=== PATIENT | female | born 1980 | race Caucasian/White ===

== ENCOUNTER 2021-12-12 16:44 | Emergency (ER) | payer OTHER ==
[~2021-12-12] VITALS: Ht 165.1 cm; Wt 95.3 kg
[2021-12-12] MEDS ORDERED: IV NORMAL SALINE 1000 ML BAG IV ONE (17:00)
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
[2021-12-12 17:11] LABS: HEMATOCRIT 41.5 % (31.2-41.9); MEAN CORPUSCULAR HEMOGLOBIN 33.7 uug (24.7-32.8); MEAN CORPUSCULAR VOLUME 97.5 fL (75.5-95.3); PLATELET COUNT (AUTO) 272 K/uL (179-408)
[2021-12-12 17:16] LABS: CARBON DIOXIDE 31 mmol/L (21-32); CHLORIDE 104 mmol/L (98-107); CREATININE 0.9 mg/dL (0.6-1.3); GLUCOSE 105 mg/dL (74-106); POTASSIUM 3.3 mmol/L (3.5-5.1); UREA NITROGEN, BLOOD 14 mg/dL (7-18)
[2021-12-12] MEDS ORDERED: MAGNESIUM SULFATE/D5W 100 ML IV SCH (18:00)
[2021-12-12] MEDS ORDERED: LORAZEPAM 0.5 MG TABLET PO ONE ×2 (18:15→18:45)
--- NOTE | 2021-12-12 18:35 | NUR ---
Pt disappeared from her room. Security found pt walking by garage. [employer] officer was walking back in and caught up w/pt who stated she was just looking for a light for her cigarette. Pt was escorted back to her bed and hooked back to monitor, etc.
[2021-12-12] MEDS ORDERED: MAGNESIUM SULFATE/D5W 100 ML ONE (18:52)
[2021-12-12] MEDS ORDERED: LORAZEPAM 1 MG TABLET ONE (18:52)
[2021-12-12 18:57] LABS: *URINE HCG, QUAL NEG (NEGATIVE)
[2021-12-12 19:15] LABS: *AMPHETAMINE, URINE NEGATIVE (NEGATIVE); *CANNABINOID, URINE POSITIVE (NEGATIVE); *COCCAINE, URINE NEGATIVE (NEGATIVE); *OPIATE, URINE NEGATIVE (NEGATIVE); *PHENCYCLIDINE SCREEN,URINE NEGATIVE (NEGATIVE)
[2021-12-12] MEDS ORDERED: LORAZEPAM 0.5 MG TABLET ONE (19:26)
--- NOTE | 2021-12-12 20:44 | NUR ---
Called taxi ETA 15-20mins
--- NOTE | 2021-12-12 21:02 | NUR ---
Patient discharged to home in stable condition. Written and verbal after care instructions given. Patient verbalizes understanding of instructions. Stressed follow up or return to ER for worsening s/s. pt discharged via taxi. denies pain. AOx4
[2021-12-12 21:06] VITALS: BP 130/91
== END 2021-12-12 21:07 | disposition left against medical advice (07) ==
LOC: ER 16:49
DX: R00.0 Tachycardia, unspecified (principal); F10.129 Alcohol abuse with intoxication, unspecified; Y90.8 Blood alcohol level of 240 mg/100 ml or more; E83.42 Hypomagnesemia; Z88.6 Allergy status to analgesic agent; Z88.3 Allergy status to other anti-infective agents; Z53.29 Procedure and treatment not carried out because of patient's decision for other reasons
CPT/HCPCS: 80048; 84703; 83735; 85025; 84484 ×2; 36415; 93005; 71045; 70450; 72125; 99291; 96361; 96365; 96366; 80320; 80307; J3475; J7040; A4663; G0480

== ENCOUNTER 2022-04-18 20:52 | Inpatient (IN) | payer OTHER ==
[~2022-04-18] VITALS: Ht 162.6 cm; Wt 117.9 kg
[2022-04-18] MEDS ORDERED: LORAZEPAM 2 MG/1 ML VIAL IV ONE ×2 (21:00→22:30)
[2022-04-18] MEDS ORDERED: IV D5/ 0.9% NACL 1,000 ML IV ONE (21:00)
[2022-04-18] MEDS ORDERED: ONDANSETRON 4 MG/2 ML VIAL IV ONE (21:00)
[2022-04-18] MEDS ORDERED: LORAZEPAM 2 MG/1 ML VIAL ONE ×2 (21:19→22:37)
[2022-04-18] MEDS ORDERED: ONDANSETRON 4 MG/2 ML VIAL ONE (21:19)
[2022-04-18 21:20] LABS: HEMATOCRIT 41.4 % (31.2-41.9); MEAN CORPUSCULAR HEMOGLOBIN 37.7 uug (24.7-32.8); PLATELET COUNT (AUTO) 108 K/uL (179-408)
[2022-04-18 21:32] LABS: ALANINE AMINOTRANSFERASE 165 U/L (14-59); ALKALINE PHOSPHATASE 149 U/L (50-136); ASPARTATE AMINOTRANSFERASE 424 U/L (15-37); BILIRUBIN,DIRECT 1.4 mg/dL (0.0-0.2); BILIRUBIN,TOTAL 2.3 mg/dL (0.2-1.0); CARBON DIOXIDE 29 mmol/L (21-32); CHLORIDE 100 mmol/L (98-107); GLUCOSE 118 mg/dL (74-106); POTASSIUM 3.5 mmol/L (3.5-5.1); TOTAL PROTEIN, SERUM 7.3 g/dL (6.4-8.2); UREA NITROGEN, BLOOD 11 mg/dL (7-18)
[2022-04-18 21:37] LABS: ACETAMINOPHEN < 10.0 ug/mL (10-30)
[2022-04-18 21:50] LABS: ETHANOL < 3 MG/DL (0-0)
[2022-04-18] MEDS ORDERED: MAGNESIUM SULFATE/D5W 400 ML ONE (22:01)
[2022-04-18] MEDS: MAGNESIUM SULFATE/D5W 100 ML IV SCH ×2 (22:03→22:34)
[2022-04-18] MEDS ORDERED: LIDOCAINE VISCUS 2% 15 ML UDC MM ONE (23:30)
[2022-04-18] MEDS ORDERED: MAG HYDROX/AL HYDROX/SIMETH 30 ML LIQUID UDC PO ONE (23:30)
[2022-04-18] MEDS ORDERED: DICYCLOMINE HCL LIQ 10 MG/5 ML UDC PO ONE (23:30)
[2022-04-18 23:48] LABS: *URINE HCG, QUAL NEGATIVE (NEGATIVE)
[2022-04-18 23:49] LABS: *BILIRUBIN,URIN 1+ (NEGATIVE); *BLOOD, URINE 1+ (NEGATIVE); *KETONES,URINE NEGATIVE (NEGATIVE); LEUKOCYTE ESTERASE ,URINE NEGATIVE (NEGATIVE); NITRITE, URINE POSITIVE (NEGATIVE); UGLUCOSE NEGATIVE (NEGATIVE)
[2022-04-19 00:03] LABS: *AMPHETAMINE, URINE NEGATIVE (NEGATIVE); *CANNABINOID, URINE NEGATIVE (NEGATIVE); *COCCAINE, URINE NEGATIVE (NEGATIVE); *OPIATE, URINE NEGATIVE (NEGATIVE); *PHENCYCLIDINE SCREEN,URINE NEGATIVE (NEGATIVE)
[2022-04-19 00:09] LABS: *CLARITY,URINE SLIGHTLY CLOUDY (CLEAR); *COLOR,URINE DARK YELLOW (YELLOW)
[2022-04-19 00:23] LABS: BACTERIA,URINE MODERATE /HPF (NONE SEEN); SQUAMOUS EPITHELIAL CELL,UR FEW /HPF (NONE SEEN)
[2022-04-19] MEDS: MAGNESIUM SULFATE/D5W 100 ML IV SCH ×2 (00:30→01:15)
[2022-04-19] MEDS ORDERED: DICYCLOMINE HCL LIQ 10 MG/5 ML UDC ONE (00:38)
[2022-04-19] MEDS ORDERED: LIDOCAINE VISCUS 2% 15 ML UDC ONE (00:38)
[2022-04-19] MEDS ORDERED: MAG HYDROX/AL HYDROX/SIMETH 30 ML LIQUID UDC ONE ×2 (00:38→01:15)
[2022-04-19] MEDS ORDERED: NITROFURANTOIN/NITROFURAN MAC 100 MG CAPSULE PO ONE ×2 (00:45→01:15)
[2022-04-19] MEDS ORDERED: IV NORMAL SALINE 1000 ML BAG IV ONE (00:45)
[2022-04-19 01:12] LABS: MAGNESIUM 2.1 mg/dL (1.8-2.4); POTASSIUM 3.1 mmol/L (3.5-5.1)
[2022-04-19] MEDS ORDERED: MAG HYDROX/AL HYDROX/SIMETH 30 ML LIQUID UDC PO ONE (01:15)
[2022-04-19] MEDS ORDERED: PANTOPRAZOLE SODIUM 40 MG VIAL ONE (01:15)
[2022-04-19] MEDS ORDERED: LORAZEPAM 2 MG/1 ML VIAL IV ONE (01:15)
[2022-04-19] MEDS ORDERED: PANTOPRAZOLE SODIUM IV 40 MG in IV DEXTROSE 5% 100 ML IV ONE (01:15)
[2022-04-19] MEDS ORDERED: LORAZEPAM 2 MG/1 ML VIAL ONE (01:30)
[2022-04-19] MEDS ORDERED: POTASSIUM CHLORIDE 20 MEQ TAB.PRT.SR PO ONE (02:00)
[2022-04-19] MEDS ORDERED: POTASSIUM CHLORIDE 20 MEQ TAB.PRT.SR ONE (02:04)
[2022-04-19] MEDS ORDERED: MAGNESIUM HYDROXIDE 30 ML LIQUID UDC PO PRN (03:15)
[2022-04-19] MEDS ORDERED: ONDANSETRON 4 MG/2 ML VIAL IV PRN (03:15)
[2022-04-19] MEDS ORDERED: LORAZEPAM 2 MG/1 ML VIAL IV PRN (03:15)
[2022-04-19] MEDS ORDERED: ACETAMINOPHEN 325 MG TABLET PO PRN (03:15)
[2022-04-19] MEDS ORDERED: IV NS 1000 ML 1,000 ML IV PRN (03:15)
[2022-04-19] MEDS ORDERED: REMEDY ESSENTIAL ZINC PASTE 113 GM TP PRN (03:15)
--- NOTE | 2022-04-19 03:19 | NUR ---
Report received from Sophia
--- NOTE | 2022-04-19 03:25 | NUR ---
Patient was initially tremulous and unable to ambulate. After Ativan IV, multiple doses of magnesium and 2000cc IV fluid patient is much improved--able to walk with minimal assistance to BR to void. Report called to ROBY Rich. Will transporet to third floor via wheelchair when paperwork available
[2022-04-19] MEDS ORDERED: CEFTRIAXONE 1 G in IV DEXTROSE 5% 50 ML IV SCH (04:00)
[2022-04-19] MEDS ORDERED: CEFTRIAXONE /D5W 50ML IVPB **ER PYXIS IV ONE (05:51)
[2022-04-19 05:53] VITALS: BP 155/94
--- NOTE | 2022-04-19 07:00 | NUR ---
Patient received from ER by wheelchair at 0529. Complained of having tremors when in the ER. Is now stating "I feel a lot more stable now." AAOx4. No distress noted at this time. Left AC IV is intact and patent. NS runs at 120cc/hr. Rocephin was administered. Ambulatory, standby assistance is needed. Endorsed safety and comfort measures. Plan of care to be continued for new admission.
--- NOTE | 2022-04-19 07:00 | NUR ---
Patient on tele monitor. Transitions from SR in high 90s [address] in 104s.
[2022-04-19] MEDS: CHLORDIAZEPOXIDE HCL 25 MG CAPSULE PO SCH ×2 (08:49→12:39)
[2022-04-19] MEDS ORDERED: PANTOPRAZOLE SODIUM 40 MG VIAL IV SCH (09:00)
[2022-04-19 11:33] VITALS: BP 160/91
[2022-04-19] MEDS ORDERED: METH-817 PO (12:10)
[2022-04-19] MEDS ORDERED: PANT40TA2 PO (12:10)
[2022-04-19] MEDS ORDERED: THIAMINE HCL INJ 100 MG in IV DEXTROSE 5% 50 ML IV SCH (13:00)
--- NOTE | 2022-04-19 14:06 | NUR ---
Social work consult was requested for a patient on [facility] for substance abuse resources. Patient is 41-year-old female. Patient is alert and oriented X4. Patient presents with anxious mood and congruent affect. Patient states her primary ground crew lines person is her boyfriend, Chas Ferrara ([phone]) and he lives in [place]. Patients boyfriend Chas Ferrara ([phone]) was at the patients bedside. Patient states she currently lives with her Grandma at [address] [place] [address]. Patient states she does not have any medical equipment at home, is not driving, and is receiving disability social security. Patient states she has a history of alcohol abuse and the last time she drank was 3 days ago. The toxicology report is negative. MALGORZATA provided the patient with substance abuse resources for resources to [address] [address] ([phone]), [facility] [address] [facility] [address] ([phone]), and [place] [address] ([phone]). MALGORZATA also provided the number for [facility] ([phone]). Patient appeared ambivalent about treatment. Patient states she has a history of anxiety and has a therapist through the department of mental health that she sees every two weeks. Patient states she does not have a psychiatrist or take medication. MALGORZATA provided the patient with the mental health resource [facility] [address] [facility] [address] ([phone]). Patient denies suicidal or homicidal ideation. Patient denies auditory or visual hallucinations. Patient states she will take an Uber accompanied by her boyfriend Chas Ferrara ([phone]) home [address] [phone].
[2022-04-19] MEDS ORDERED: MULT-594 PO (14:36)
[2022-04-19] MEDS ORDERED: THIA100T13 PO (14:36)
[2022-04-19] MEDS ORDERED: FOLI1TAB94 PO (14:36)
[2022-04-19] MEDS ORDERED: HYDR-500 PO (14:36)
--- NOTE | 2022-04-19 17:40 | NUR ---
Patient discharged. Discharge package given and explained. Patient stated intention to leave before 6:00 PM, due to appointments scheduled for tomorrow. IV removed per protocol, without complications. Patient ambulated independently off unit. Last Vital Signs Temp: 98.2 RR: 19 HR: 74 BP: 138/79 O2: 98%
[2022-04-20] MEDS ORDERED: CEFTRIAXONE 2 G in IV DEXTROSE 5% 100 ML IV SCH (06:00)
[2022-04-20] MEDS ORDERED: THIAMINE HCL 100 MG TABLET PO SCH (09:00)
== END 2022-04-19 17:10 | disposition home or self-care (01) | DRG 775 ==
LOC: ER 20:53 → TELE3 04-19 03:15
PROVIDERS: ADMIT Nurse Practitioner Acute Care; ATTEND Nurse Practitioner Acute Care
DX: F10.239 Alcohol dependence with withdrawal, unspecified (principal); D69.6 Thrombocytopenia, unspecified; K70.9 Alcoholic liver disease, unspecified; E87.6 Hypokalemia; G89.4 Chronic pain syndrome; J45.909 Unspecified asthma, uncomplicated; F32.A Depression, unspecified; R74.01 Elevation of levels of liver transaminase levels; E80.6 Other disorders of bilirubin metabolism; E83.42 Hypomagnesemia; G51.0 Bell's palsy; D75.89 Other specified diseases of blood and blood-forming organs; Z20.822 Contact with and (suspected) exposure to COVID-19; Z87.891 Personal history of nicotine dependence; F41.9 Anxiety disorder, unspecified
CPT/HCPCS: 36415; 83735; 84703; 85025; 93005; A4663; C9113; G0378; G0480; J0696; J2060; J2405; J3411; J3475; J7040; J7042

== ENCOUNTER 2022-10-27 22:15 | Emergency (ER) | payer OTHER ==
[~2022-10-27 22:15] MED LIST: FOLI1TAB94 PO; HYDR-500 PO; METH-817 PO; MULT-594 PO; PANT40TA2 PO; THIA100T13 PO
--- NOTE | 2022-10-27 23:17 | NUR ---
Pt not in waiting room.
== END 2022-10-27 23:18 | disposition left against medical advice (07) ==
LOC: ER 22:15
DX: Z53.21 Procedure and treatment not carried out due to patient leaving prior to being seen by health care provider (principal)